=== PATIENT | female | born 1970 | race Caucasian/White ===

== ENCOUNTER → 2024-09-17 | Day surgery (SDC) | payer OTHER ==
--- NOTE | 2024-09-24 09:40 | MM ---
Reason for Exam: Post Procedure Mammogram. Risk Values: Sunitha 5 year model risk: 0.7%. NCI Lifetime model risk: 5.8%. Tissue Density: Left: The breasts are heterogeneously dense, which may obscure small masses. Pathology Description: Location: 4 o'clock. Marker Left Behind. Needle Type: Mammotome Cores: 4 Skin Nicks: 1 The procedure of ultrasound guided core biopsy was explained to the patient. Benefits, alternatives, and risks were discussed. An informed consent was then obtained. The patient was placed in supine positioning for imaging and for the procedure. The overlying skin was prepped and draped in usual sterile fashion. Lidocaine buffered with bicarbonate was used as anesthetic into the skin and subcutaneous tissue up to area of concern in the left breast. A sisi was made with surgical scalpel. Under ultrasound guidance, a 12-gauge vacuum assisted biopsy gun device was used to obtain 4 core samples. Following this, a biopsy clip was left in lesion. The patient tolerated the procedure well without any immediate complication. The patient was kept in the radiology department for short stay after the procedure and then discharged home in stable condition. Postprocedure mammogram: The patient was transferred to mammography for physician ordered post procedure mammogram for clip placement verification. Post procedure mammogram demonstrates appropriate placement of clip. Impression: Successful, uncomplicated ultrasound guided core biopsy of area of concern in the left breast dense fibroglandular tissue, full pathology results to follow. [facility], , 09/17/2024 9:40 AM. Pathology Results: Result: Malignant, Invasive ductal carcinoma. Pathology and radiology were reviewed. Findings are concordant. 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 See Surgical Pathology Cancer Case Summary and Comment. Overall Assessment: Malignant Assessment: MG diagnostic mammo LT wo CAD. - Left: Known biopsy proven malignancy, BI-RAD 6. Management: Surgical Consultation of the left breast. Electronically signed and approved by: Deven Mancini DO
== END ==
LOC: RADUSWWP 06:56
PROVIDERS: ATTEND Surgery
DX: C50.912 Malignant neoplasm of unspecified site of left female breast (principal); R92.8 Other abnormal and inconclusive findings on diagnostic imaging of breast
CPT/HCPCS: 88305; 88342; 88341; 77065; 19083; A4648

== ENCOUNTER → 2024-09-26 | Outpatient (CLI) | payer OTHER ==
[2024-09-26 11:13] VITALS: BP 158/93; PULSE 76; RESP 16; TEMP 97.9
--- NOTE | 2024-09-26 11:43 | P.GSCN ---
History of Present Illness Consult date: 09/26/24 Reason for Consult: Biopsy-proven left breast invasive ductal carcinoma Requesting physician: Vy Awan History of present illness: Fe is a 53-year-old female seen in consultation for Dr. Awan regarding a biopsy-proven left breast invasive ductal carcinoma. She underwent a bilateral screening mammogram on 08 28 24. This was done at [facility]. The radiographs were reviewed at [facility] with Dr. James from radiology. A left breast diagnostic mammogram was then performed which revealed in the 4:00 region a suspicious 2 x 1.6 cm masslike area. An ultrasound was performed of this area on 09-09-2024. This revealed a 2 x 1.6 x 1.4 cm masslike area. An ultrasound-guided core biopsy was recommended. This was performed on 09 17 24. Pathology revealed invasive poorly differentiated ductal carcinoma grade 3 and high-grade ductal carcinoma in situ. This was ER positive MA low positive HER2 positive. She has been able to feel a nodule in her left breast in August. It has not changed in size. She is not complaining of any nipple discharge or skin changes. She has never had any surgery on her breast. She is not complaining of any recent trauma or infection in her breast. She tolerated the biopsy without difficulty. 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 Medical history: Negative Social history: Nicotine: As above Alcohol: Negative Drugs: Negative Review of Systems - Constitutional Denies fever, Denies weight loss - EENT Eyes: denies blurred vision Ears: deny: decreased hearing, tinnitus Ears, nose, mouth and throat: Denies dysphagia - Breasts bilateral: as per HPI - Cardiovascular Denies chest pain, Denies shortness of breath - Respiratory Denies cough, Denies 7 - Gastrointestinal Reports as per HPI - Genitourinary Genitourinary: Denies dysuria, Denies hematuria - Musculoskeletal Reports as per HPI - Integumentary Denies rash, Denies unusual bruising - Neurological Denies headaches, Denies syncope - Psychiatric Reports as per HPI - Endocrine Reports as per HPI - Hematologic/Lymphatic Denies easy bleeding, Denies easy bruising - Allergic/Immunologic Reports as per HPI Past Medical History Past Medical History: No Reported History History of Any Multi-Drug Resistant Organisms: None Reported Additional Past Surgical History / Comment(s): hx of cystoscopy Past Anesthesia/Blood Transfusion Reactions: No Reported Reaction Past Psychological History: No Psychological Hx Reported Smoking Status: Former smoker Past Alcohol Use History: None Reported Additional Past Alcohol Use History / Comment(s): quit smoking Apr 2019 Past Drug Use History: None Reported Medications and Allergies Home Medications Medication Instructions Recorded Confirmed Type No Known Home Medications 09/11/24 09/26/24 History Allergies Allergy/AdvReac Type Severity Reaction Status Date / Time No Known Allergies Allergy Verified 09/26/24 11:09 Surgical - Exam Vital Signs Temp Pulse Resp BP Pulse Ox 97.9 F 76 16 158/93 97 09/26/24 11:09 09/26/24 11:09 09/26/24 11:09 09/26/24 11:09 09/26/24 11:09 - General well developed, well nourished, moderate distress - Eyes normal ocular movement - Neck trachea midline - Respiratory normal respiratory effort, clear to auscultation - Cardiovascular Rhythm: regular Heart Sounds: normal: S1, S2 - Abdomen Abdomen: soft, non tender, no guarding, no rigid, no rebound - Musculoskeletal normal gait - Psychiatric oriented to time, oriented to person, oriented to place, speech is normal, memory intact Breast Exam: BRA: 40C inspection: Bilateral grade 2 ptosis Well-healed scar left breast lateral aspect 4 o'clock position from biopsy Palpation: Right breast: Dense breast, no dominant masses or nodules of concern Right axilla: No adenopathy of concern Left breast: Dense breast, at the 4 o'clock position there is some increased nodularity approximately 1 cm in size Left axilla: No adenopathy of concern Results Mammogram and ultrasound personally reviewed and discussed with Dr. James from radiology Assessment and Plan Assessment: Impression: Left breast invasive ductal carcinoma G3 ER positive MA positive HER2 positive Plan: Presentation of case at tumor board CC: Dr. De La O
== END ==
LOC: WWCWWP 10:18
PROVIDERS: ATTEND Surgery
DX: D05.12 Intraductal carcinoma in situ of left breast (principal); Z17.21 Progesterone receptor positive status; Z87.891 Personal history of nicotine dependence

== ENCOUNTER → 2024-10-10 | Outpatient (CLI) | payer OTHER ==
[2024-10-10 13:09] LABS: African American GFR (CKD) >90 (>60 ml/min/1.73 sqM); Blood Urea Nitrogen 19 mg/dL (7-17); Non-African American GFR(CKD) >90 (>60 ml/min/1.73 sqM)
--- NOTE | 2024-10-10 13:59 | CT ---
EXAMINATION TYPE: CT ChestAbdPelvis w con CT DLP: 1873.9 mGycm, Automated exposure control for dose reduction was used. DATE OF EXAM: 10/10/2024 1:47 PM COMPARISON: None CLINICAL INDICATION:Female, 53 years old with history of Z01.818 PRE OP C50.512 BREAST CANCER Z03.89; [facility], new diagnosis of breast ca Technique: Multiple axial images of the chest, abdomen, and pelvis were obtained following the intrav enous administration of 100 mL Isovue-300. Oral contrast was administered. Two-dimensional coronal an d sagittal reconstructions were obtained. Findings: CHEST: LUNGS/ PLEURA: No pleural effusion, pneumothorax, or focal consolidation. Mild centrilobular emphysem atous changes. No suspicious pulmonary nodule or mass. AIRWAY: Patent and unremarkable.. HEART: Size within normal limits. . No pericardial effusion. No significant coronary artery calcifica tions. MEDIASTINUM: No evidence of adenopathy. VASCULATURE: No aortic aneurysm. MUSCULOSKELETAL: No acute osseous abnormalities. No aggressive osseous lesion. SOFT TISSUES/LYMPH NODES: No enlarged axillary lymph nodes greater than 1 cm in short axis bilaterall y. LOWER NECK: Subcentimeter hypodense left thyroid lobe nodule. ABDOMEN: ABDOMEN LIVER: Unremarkable GALLBLADDER AND BILE DUCTS: Unremarkable. PANCREAS: Unremarkable. SPLEEN: Unremarkable. ADRENAL GLANDS: Unremarkable. KIDNEYS AND URETERS: No evidence of hydronephrosis or renal calculus. The kidneys enhance symmetrical ly. Contrast is demonstrated within both collecting systems and proximal ureters on the delayed phase . PELVIS BLADDER: Unremarkable REPRODUCTIVE: Uterus with a posterior enhancing uterine myometrial 4.0 cm lesion. ABDOMEN & PELVIS STOMACH AND BOWEL: Stomach and duodenum are unremarkable. Enteric contrast reaches the hepatic flexur e. Distal colonic diverticulosis without evidence for acute diverticulitis. No focal bowel wall thick ening or surrounding inflammatory changes. The appendix is within normal limits. No evidence of bowel obstruction. PERITONEUM: No evidence of pneumoperitoneum or free fluid. VASCULATURE: No evidence of aortic aneurysm. MUSCULOSKELETAL: No acute osseous abnormalities. No aggressive osseous lesion. Degenerative disc dise ase most pronounced at L2-L3 with disc space narrowing and prominent endplate sclerosis. LYMPH NODES: No evidence for lymphadenopathy. SOFT TISSUE/ABDOMINAL WALL: Unremarkable IMPRESSION: 1. No acute process within the chest, abdomen or pelvis. 2. No discrete evidence for metastasis. 3. Retroverted uterus with enhancing lesion. Favored to represent a fibroid. This could be further ev aluated with ultrasound as clinically indicated. [facility], , 10/10/2024 1:56 PM
--- NOTE | 2024-10-11 11:59 | CA ---
Transthoracic Echo Report Name: Fe Otoole Age: 53 Gender: F : 1970 Exam Date: 10/10/2024 11:31 Exam Location: [facility] Ht (in): 69 Wt (lb): 240 Ordering Physician: Walt Le MD Attending/Referring Phys: Walt Le MD Powerhouse Operator Emma Wallace RDCS Procedure CPT: Indications: Z01.818 PRE OP C50.512 BREAST CANCER Z03.89 Cardiac Hx: Technical Quality: Fair Contrast 1: Total Dose (mL): Contrast 2: Total Dose (mL): MEASUREMENTS (Male / Female) Normal Values 2D ECHO LV Diastolic Diameter PLAX 5.3 cm 4.2 - 5.9 / 3.9 - 5.3 cm LV Systolic Diameter PLAX 3.8 cm IVS Diastolic Thickness 1.2 cm 0.6 - 1.0 / 0.6 - 0.9 cm LVPW Diastolic Thickness 1.2 cm 0.6 - 1.0 / 0.6 - 0.9 cm LV Relative Wall Thickness 0.5 RV Internal Dim ED PLAX 3.2 cm LVOT Diameter 2.1 cm LV Diastolic Volume MOD BP 141.2 cm??? 67 - 155 / 56 - 104 cm??? LV Systolic Volume MOD BP 49.6 cm??? 22 - 58 / 19 - 49 cm??? LV Ejection Fraction MOD BP 64.8 % >= 55 % LV Cardiac Index MOD BP 2579.8 cm???/min???m??? LV Diastolic Volume MOD 4C 147.9 cm??? LV Systolic Volume MOD 4C 53.4 cm??? LV Ejection Fraction MOD 4C 63.9 % LV Cardiac Index MOD 4C 2661.8 cm???/min???m??? LV Diastolic Length 4C 8.9 cm LV Systolic Length 4C 7.3 cm LV Diastolic Volume MOD 2C 130.4 cm??? LV Systolic Volume MOD 2C 44.2 cm??? LV Ejection Fraction MOD 2C 66.1 % LV Cardiac Index MOD 2C 2426.7 cm???/min???m??? LV Diastolic Length 2C 8.5 cm LV Systolic Length 2C 7.0 cm LA Volume 45.1 cm??? 18 - 58 / 22 - 52 cm??? LA Volume Index 19.2 cm???/m??? 16 - 28 cm???/m??? DOPPLER LVOT Peak Velocity 101.7 cm/s LVOT Peak Gradient 4.1 mmHg LVOT Velocity Time Integral 20.5 cm LVOT Stroke Volume 74.2 cm??? LVOT Stroke Volume Index 33.2 ml/m??? LVOT Cardiac Index 2089.1 cm???/min???m??? MV Area PHT 3.5 cm??? Mitral E Point Velocity 83.6 cm/s Mitral A Point Velocity 78.6 cm/s Mitral E to A Ratio 1.1 MV Deceleration Time 216.4 ms MV E' Velocity 6.8 cm/s Mitral E to MV E' Ratio 12.3 FINDINGS Left Ventricle Mildly increased left ventricular wall thickness. Left ventricular cavity size normal. Normal left ventricular systolic function with no obvious regional wall motion abnormalities. Normal left ventricular diastolic filling pattern. Left ventricular ejection fraction is estimated at 60 %. Right Ventricle Normal right ventricular size and function. Right ventricular systolic pressure within normal limits. Right Atrium Normal right atrial size. Left Atrium Normal left atrial size. Mitral Valve Structurally normal mitral valve. Mild mitral annular calcification. Mild mitral regurgitation. Aortic Valve Trileaflet aortic valve. No aortic valve stenosis or regurgitation. Tricuspid Valve Structurally normal tricuspid valve. Mild tricuspid regurgitation. Pulmonic Valve Structurally normal pulmonic valve. Trace pulmonic regurgitation. Pericardium No pericardial effusion. Aorta Normal size aortic root and proximal ascending aorta. CONCLUSIONS LVEF 60% Mild concentric LVH No obvious regional wall motion abnormality Normal RV size and systolic function Mild mitral regurgitation, mild tricuspid regurgitation No pericardial effusion Previewed by: Dr Campbell Perez (Electronically Signed) Final Date: 11 October 2024 11:59
== END | disposition home or self-care (01) ==
LOC: RADECHMAIN 11:05
PROVIDERS: ATTEND Internal Medicine Hematology & Oncology
DX: Z01.818 Encounter for other preprocedural examination (principal); C50.512 Malignant neoplasm of lower-outer quadrant of left female breast; N85.4 Malposition of uterus; K57.30 Diverticulosis of large intestine without perforation or abscess without bleeding; I08.1 Rheumatic disorders of both mitral and tricuspid valves; Z71.3 Dietary counseling and surveillance
CPT/HCPCS: 93306; 82565; 84520; 71260; 74177; 36415; Q9967

== ENCOUNTER → 2024-10-13 | Outpatient (CLI) | payer OTHER ==
--- NOTE | 2024-10-13 14:08 | NM ---
EXAMINATION TYPE: NM bone scan whole body DATE OF EXAM: 10/13/2024 COMPARISON: NONE CLINICAL INDICATION: Female, 53 years old with history of C50.512 MALIG NEOPLASM OF LOWER-OUTER QUADR ANT OF; Delayed whole-body scanning was performed following the injection of 21.6 mCi Tc 99m MDP. Images acq uired 3 hours post injection. FINDINGS: Degenerative uptake involving the shoulders, sternoclavicular joints and thoracolumbar spine greatest within the upper lumbar spine. Radiographic correlation is advised. Degenerative changes about the k nees and ankles as well as the elbows and wrists. IMPRESSION: Radiographic correlation for intense increased uptake upper lumbar spine. Otherwise degenerative mckenna ges noted. [facility], , 10/13/2024 2:05 PM
== END | disposition home or self-care (01) ==
LOC: RADNMMAIN 10:09
PROVIDERS: ATTEND Internal Medicine Hematology & Oncology
DX: C50.512 Malignant neoplasm of lower-outer quadrant of left female breast (principal)
CPT/HCPCS: 78306; A9503

== ENCOUNTER → 2024-11-01 | Outpatient (CLI) | payer OTHER ==
--- NOTE | 2024-11-05 13:39 | BMR ---
EXAM DATE: 11/01/2024 EXAM DESCRIPTION: MRI-Breast Bilat (W/WO Contrast) INDICATION: Diagnostic MRI Recently diagnosed carcinoma presenting for staging COMPARISON: Comparison is made with relevant prior imaging in PACS. CONTRAST: 11 cc of Gadobutrol TECHNIQUE: Multiplanar MRI imaging of both breasts was performed with a dedicated breast coil, before and after intravenous administration of gadolinium contrast, using the standard breast mass protocol. Computer-aided detection was used to aid in interpretation. Study was performed at [facility] with Radiologic interpretation by [facility]. FINDINGS: General breast composition: The breast is heterogeneously dense Background parenchymal enhancement: Minimal FINDINGS: Right Breast: Review of the dynamic contrast-enhanced series shows no rapidly enhancing masses, suspicious enhancement patterns or other abnormalities. The T2 weighted series shows no abnormality. No enlarged lymph nodes. Left Breast: Review of the dynamic contrast-enhanced series shows an irregular enhancing mass in the central outer breast at posterior depth measuring 2.6 x 2.0 x 1.8 cm (503:262) at the site of known malignancy. There are 2 additional foci of enhancement with similar enhancement patterns in the central breast at mid depth (503:270, 601:51 and 503 270, 601:63). No enlarged lymph nodes. IMPRESSION: Right Breast: BI-RADS Category1- Negative No MRI evidence of malignancy. Left Breast: BI-RADS Category 4- Suspicious 1. 2.6 cm biopsy proven malignancy in the central outer breast. 2. Two additional foci of enhancement with similar enhancement pattern to the known malignancy for which diagnostic mammogram, targeted ultrasound and ultrasound-guided core biopsy is recommended. If no sonographic correlate is present MR biopsy is recommended. 3. No enlarged lymph nodes. OVERALL ASSESSMENT -- BI-RADS 4 Recommendation: Left diagnostic mammogram, targeted ultrasound and possible ultrasound-guided core biopsy at this time. [facility]
== END | disposition home or self-care (01) ==
LOC: RADMRIMAIN 08:19
PROVIDERS: ATTEND Internal Medicine Hematology & Oncology
DX: C50.512 Malignant neoplasm of lower-outer quadrant of left female breast (principal); Z71.3 Dietary counseling and surveillance; Z17.0 Estrogen receptor positive status [ER+]
CPT/HCPCS: 77049; A9585

== ENCOUNTER → 2024-11-03 | Outpatient (CLI) | payer OTHER ==
--- NOTE | 2024-11-04 08:40 | MR ---
EXAMINATION TYPE: MR lumbar spine wo/w con DATE OF EXAM: 11/03/2024 2:28 PM COMPARISON: None. CLINICAL INDICATION: Female, 53 years old with history of C50.512 MALIG NEOPLASM OF LOWER-OUTER QUADR ANT OF; [facility], Breast cancer, abnormal bone scan. TECHNIQUE: Multi planar, multi sequence imaging was performed utilizing: T1-weighted, T2-weighted, a nd turbo inversion recovery imaging of the lumbar spine. IV Contrast: 10 mL Gadobutrol (None, if empty) FINDINGS: Alignment: The lumbar vertebral bodies have preserved heights mild levoscoliosis alignment apex L3. Cord: The conus medullaris and the distal spinal cord appear unremarkable with regards to their signa l intensity and morphology. Bones/Discs: Moderate degeneration changes throughout the spine with osteophyte formation and facet j oint arthropathy. Multilevel disc desiccation is present. Reactive adjoining endplate edema at L2-L3 with Modic type I endplate changes. Reactive enhancement at the adjoining endplates of L2-L3. Enhance ment does extend into the right occult of L2 on L3. Bone scan finding correlates with enhancement and degeneration described above. T12-L1: No evidence of significant spinal canal stenosis or neural foraminal stenosis. L1-L2: No evidence of significant spinal canal stenosis or neural foraminal stenosis. L2-L3: Disc bulge and facet joint arthropathy without significant spinal canal stenosis and moderate left and moderate to severe right neural foraminal stenosis. L3-L4: Disc bulge and facet joint arthropathy result in mild spinal canal and moderate to severe righ t neural foraminal stenosis. L4-L5: Disc bulge and facet joint arthropathy without significant spinal canal stenosis and mild to m oderate right and severe left neural foraminal stenosis. L5-S1: The disc has a rounded posterior morphology without significant spinal canal stenosis. Facet j oint arthropathy with mild bilateral neural foraminal stenosis. No significant spinal canal or neural foraminal stenosis in the remainder of the visualized levels. Other findings: None. IMPRESSION: 1. Uptake on bone scan is most compatible with degeneration. No underlying masses definitively visua lized. No evidence for osteomyelitis discitis. 2. No definitive evidence of disc herniation or significant spinal canal stenosis. 3. Moderate to severe disc degeneration with associated osteoarthritic changes reactive Modic type I endplate changes at L2-L3. 4. L4-L5 severe left neural foraminal stenosis secondary to facet joint arthropathy and disc bulge. 5. L3-L4 moderate to severe bilateral neural foraminal stenosis suggested arthropathy and disc bulge . 6. L2-L3 moderate to severe right and moderate left neural foraminal stenosis secondary to facet jojo nt arthropathy and disc bulge. [facility], , 11/04/2024 8:37 AM
== END | disposition home or self-care (01) ==
LOC: RADMRIMAIN 13:12
PROVIDERS: ATTEND Internal Medicine Hematology & Oncology
DX: C50.512 Malignant neoplasm of lower-outer quadrant of left female breast (principal); M48.061 Spinal stenosis, lumbar region without neurogenic claudication; M51.369 Other intervertebral disc degeneration, lumbar region without mention of lumbar back pain or lower extremity pain; Z71.3 Dietary counseling and surveillance; Z17.0 Estrogen receptor positive status [ER+]
CPT/HCPCS: 72158; A9585

== ENCOUNTER 2024-11-10 13:13 | Day surgery (SDC) | payer OTHER ==
[~2024-11-10 13:13] MED LIST: HYDROmorphone 0.5 MG/0.5 ML SYRINGE IVP PRN; Pre Op ABX Message 1 EACH MISC MISCELLANE ONE
[2024-11-10] MEDS: IV FLUID CONTINUATION 1,000 ML IV ONE (13:34)
[2024-11-10 14:02] VITALS: TEMP 98.9
[2024-11-10] MEDS: ONDANSETRON 4 MG/2 ML VIAL IVP ONE (14:06)
[2024-11-10] MEDS: LACTATED RINGERS 1,000 ML IV SCH (14:06)
[2024-11-10] MEDS: DEXAMETHASONE SOD PHOSPHATE 4 MG/ML 1 ML VIAL IV ONE (14:06)
[2024-11-10] MEDS ORDERED: MIDAZOLAM 2 MG/2 ML VIAL ONE (14:43)
[2024-11-10] MEDS ORDERED: fentaNYL (PF) 50 MCG/ML 2 ML AMP ONE (14:43)
[2024-11-10] MEDS ORDERED: PROPOFOL 10 MG/ML 20 ML VIAL IV ONE (14:43)
[2024-11-10] MEDS: ceFAZolin 1,000 MG VIAL IVPB ONE (14:45)
[2024-11-10] MEDS: BUPIVACAINE (PF) 0.25% 30 ML VIAL SQ ONE (15:03)
--- NOTE | 2024-11-10 15:39 | P.OP ---
Date of Procedure: 11/10/24 Preoperative Diagnosis: Breast cancer Postoperative Diagnosis: Breast cancer Procedure(s) Performed: Mediport placement under fluoroscopic guided Anesthesia: MAC Surgeon: Kana Barber Pathology: none sent Condition: stable Disposition: same day Indications for Procedure: 53-year-old female with recent diagnosis of breast cancer. Plan is for chemotherapy induction and Mediport placement is being performed secondary to that. Risks, benefits and alternatives were provided to the patient. All quest ions answered. Operative Findings: Appropriate flush and withdrawal from Mediport site Description of Procedure: Patient was brought to the operating suite and placed in supine position on the operating table. Sedation was provided by anesthesia and the patient underwent endotracheal intubation. Patient was then prepped and draped in regular sterile fashion. Local anesthetic was administered and the right subclavian vein was entered on first attempt. Dark nonpulsatile blood was noted guidewire was then placed and location was confirmed under fluoroscopic guidance. At this point local anesthetic was administered to create the pocket for the port. Incision was made and dissection was carried to the prepectoralis fascia. Dissection was carried to free up space for the port. At this point a small incision was made at the guidewire insertion site and a tunnel was created between this guidewire site and the pocket and catheter was placed. Dilator sheath was then placed over the guidewire under fluoroscopic guidance and catheter was then placed. Catheter was noted to be in appropriate position and was connected to the port and port was placed in the pocket. Appropriate flush and withdrawal was noted from the port site. The port was then secured to the prepectoralis fascia in 2 separate locations. Fluoroscopic guidance confirmed location with no kinks in the catheter. Heparin lock was placed. The wound was then closed in layers with 3-0 Vicryl and 4-0 Vicryl subcuticular suture. Sterile dressing was applied. The patient was then taken to postanesthesia care unit in stable condition with pending chest x-ray.
--- NOTE | 2024-11-10 15:59 | XR ---
EXAMINATION TYPE: XR chest 1V confirm line [facility] DATE OF EXAM: 11/10/2024 COMPARISON: NONE CLINICAL INDICATION: Female, 53 years old with history of Mediport placement; TECHNIQUE: Single frontal view of the chest is obtained. FINDINGS: Right-sided MediPort catheter demonstrates its distal tip overlying the SVC. No evidence fo r pneumothorax. There is no focal air space opacity, pleural effusion, or pneumothorax seen. The car diac silhouette size is within normal limits. The osseous structures are intact. IMPRESSION: No acute process. [facility], , 11/10/2024 3:56 PM
[2024-11-10 16:03] VITALS: RESP 16
--- NOTE | 2024-11-10 16:03 | FL ---
Fluoroscopy History: Port a cath port-a-cath insertion with Dr. King fl time 11.8 sec dap [id number] MAC/ [facility], , 11/10/2024 4:00 PM
[2024-11-10 16:09] VITALS: BP 128/63; PULSE 82
== END 2024-11-10 16:36 | disposition home or self-care (01) ==
LOC: OR 13:13
PROVIDERS: ATTEND Surgery
DX: C50.512 Malignant neoplasm of lower-outer quadrant of left female breast (principal); Z17.0 Estrogen receptor positive status [ER+]; Z17.21 Progesterone receptor positive status; F41.9 Anxiety disorder, unspecified; Z87.891 Personal history of nicotine dependence; Z80.3 Family history of malignant neoplasm of breast
CPT/HCPCS: 36561; 77001; C1788; J2250; J1100; J2405; J0690; J3010; J1642; J2704; J0665

== ENCOUNTER → 2024-11-14 | Outpatient (CLI) | payer OTHER ==
--- NOTE | 2024-11-14 09:15 | MM ---
Reason for Exam: Additional evaluation requested from prior study. Patient History: Breast cancer, left, age 53. 09/17/2024, Malignant US biopsy breast VAD LT on the left side. Prior Study Comparison: 09/17/2024 Left MG diagnostic mammo LT wo CAD., [facility]. Tissue Density: Left: The breasts are heterogeneously dense, which may obscure small masses. Findings: Analyzed By CAD. Biopsy-proven 2.3 cm spiculated mass posterior 3:00 left breast is redemonstrated. Microclip he relates to the patient's biopsy. The 2 punctate foci of enhancement on MRI show no clear mammographic correlate. Overall Assessment: Incomplete: need additional imaging evaluation, BI-RAD 0 Management: Diagnostic Breast Ultrasound of the left breast. [facility], , 11/14/2024 9:12 AM. Electronically signed and approved by: Michelle Capone M.D. Radiologist
--- NOTE | 2024-11-14 10:35 | USB ---
Reason for Exam: Additional evaluation requested from prior study. Patient History: Breast cancer, left, age 53. 09/17/2024, Malignant US biopsy breast VAD LT on the left side. Technique: Method: Targeted. Doppler: Color. Patient Position: RPO. Prior Study Comparison: 09/17/2024 Left MG diagnostic mammo LT wo CAD., [facility]. Findings: The periareolar of the left breast, the axilla of the left breast and the retroareolar of the left breast were scanned. Ultrasound targeted around the nipple area and then extending 3-6 o'clock as well as 9:00 in attempts to identify the questioned two, 3 mm foci of enhancement on MRI. While there are vague areas of altered echogenicity seen throughout, we are unable to definitively identify an adequate target for biopsy that would convincingly correlate to the MRI findings. Overall Assessment: Suspicious, BI-RAD 4 Management: MRI-guided biopsy of the left breast. After negative second look ultrasound. Results were given to the patient verbally at the time of exam. [facility], , 11/14/2024 10:00 AM. Electronically signed and approved by: Michelle Capone M.D. Radiologist
== END | disposition home or self-care (01) ==
LOC: RADUSWWP 08:23
PROVIDERS: ATTEND Surgery
DX: R92.332 Mammographic heterogeneous density, left breast (principal); Z85.3 Personal history of malignant neoplasm of breast
CPT/HCPCS: 77061; 77065